=== PATIENT | female | born 1965 | race Caucasian/White ===

== ENCOUNTER 2022-03-11 16:38 | Outpatient (REF) | payer MEDICARE, MEDICAID, SELFPAY ==
--- NOTE | ~2022-03-11 | MR_ITS ---
EXAMINATION: MR BRAIN WITHOUT CONTRAST CLINICAL INFORMATION: Abnormal neurologic examination. Headaches. Numbness in extremities. Dizziness. COMPARISON: None. TECHNIQUE: Multiplanar, multisequence imaging of the brain was performed without contrast. FINDINGS: No diffusion abnormalities are identified to suggest an acute or subacute infarct. The ventricles are normal in size. No mass effect or midline shift is seen. Nonspecific mild periventricular white matter signal changes noted. No extra-axial fluid collections are seen. The brainstem and cerebellum are normal. The gradient refocused acquisition is normal. The craniovertebral junction, marrow signal, and midline structures are normal. The major intracranial flow voids at the level of the [place] are preserved. The dural venous sinus flow voids are maintained. The mastoid air cells are fairly well aerated. Mild ethmoid and left maxillary sinus mucosal thickening noted. MR/MR head/brain wo con IMPRESSION: No acute intracranial process. Nonspecific mild periventricular white matter signal changes which may be due to chronic microangiopathy.
== END 2022-03-11 16:39 | disposition home or self-care (01) ==
LOC: HO.MRI 16:38
PROVIDERS: Visit Provider Psychiatry & Neurology Neurology
DX: R42 Dizziness and giddiness (principal); R29.90 Unspecified symptoms and signs involving the nervous system
CPT/HCPCS: 70551